=== PATIENT | female | born 1985 | race Caucasian/White ===

== ENCOUNTER 2018-11-19 10:43 | Emergency (ER) | payer SELFPAY ==
--- NOTE | 2018-11-19 11:34 | EDPHYS ---
Physician Documentation [facility] Name: Crystal Sacnhez Age: 33 yrs Sex: Female : 1985 Arrival Date: 11/19/2018 Time: 10:44 Bed 25 Private MD: ED Physician Warren Hartley HPI: 11/19 11:43 This 33 yrs old Female presents to ER via Ambulatory with complaints of Sore snw Throat. 11:43 The patient presents with sore throat. The patient describes throat pain as constant, snw raw, scratchy. Onset: The symptoms/episode began/occurred suddenly, 2 day(s) ago, and became worse and became persistent. Severity of symptoms: At their worst the symptoms were moderate, severe. Associated signs and symptoms: The patient has no apparent associated signs or symptoms. The patient has not experienced similar symptoms in the past. It is unknown whether or not the patient has recently seen a physician. 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 - Social history:: Smoking status: Patient uses tobacco products, smokes one pack cigarettes per day. - Ebola Screening: : No symptoms or risks identified at this time. ROS: 11:42 Constitutional: Negative for fever, chills, and weight loss, Eyes: Negative for injury, snw pain, redness, and discharge, Neck: Negative for injury, pain, and swelling, Cardiovascular: Negative for chest pain, palpitations, and edema, Respiratory: Negative for shortness of breath, cough, wheezing, and pleuritic chest pain, Abdomen/GI: Negative for abdominal pain, nausea, vomiting, diarrhea, and constipation, Back: Negative for injury and pain, : Negative for injury, bleeding, discharge, and swelling, MS/Extremity: Negative for injury and deformity, Skin: Negative for injury, rash, and discoloration, Neuro: Negative for headache, weakness, numbness, tingling, and seizure. 11:42 ENT: Positive for sore throat. Exam: 11:41 Constitutional: This is a well developed, well nourished patient who is awake, alert, snw and in no acute distress. Head/Face: Normocephalic, atraumatic. Eyes: Pupils equal round and reactive to light, extra-ocular motions intact. Lids and lashes normal. Conjunctiva and sclera are non-icteric and not injected. Cornea within normal limits. Periorbital areas with no swelling, redness, or edema. Neck: Trachea midline, no thyromegaly or masses palpated, and no cervical lymphadenopathy. Supple, full range of motion without nuchal rigidity, or vertebral point tenderness. No Meningismus. Chest/axilla: Normal chest wall appearance and motion. Nontender with no deformity. No lesions are appreciated. Cardiovascular: Regular rate and rhythm with a normal S1 and S2. No gallops, murmurs, or rubs. Normal PMI, no JVD. No pulse deficits. Respiratory: Lungs have equal breath sounds bilaterally, clear to auscultation and percussion. No rales, rhonchi or wheezes noted. No increased work of breathing, no retractions or nasal flaring. Abdomen/GI: Soft, non-tender, with normal bowel sounds. No distension or tympany. No guarding or rebound. No evidence of tenderness throughout. Back: No spinal tenderness. No costovertebral tenderness. Full range of motion. Skin: Warm, dry with normal turgor. Normal color with no rashes, no lesions, and no evidence of cellulitis. MS/ Extremity: Pulses equal, no cyanosis. Neurovascular intact. Full, normal range of motion. Neuro: Awake and alert, GCS 15, oriented to person, place, time, and situation. Cranial nerves II-XII grossly intact. Motor strength 5/5 in all extremities. Sensory grossly intact. Cerebellar exam normal. Normal gait. 11:41 ENT: External ear(s): are unremarkable, Ear canal(s): are normal, TM's: are normal, Nose: is normal, Mouth: is normal, Posterior pharynx: swelling, that is moderate, that is marked, erythema, that is marked, exudate, is not appreciated, Voice: is normal. Vital Signs: 10:59 BP 132 / 90; Pulse 92; Resp 16; Temp 98.4; Pulse Ox 98% on R/A; Weight 58.97 kg; Height la1 5 ft. 9 in. (175.26 cm); 10:59 Body Mass Index 19.20 (58.97 kg, 175.26 cm) la1 MDM: 11:24 Patient medically screened. snw 11:42 Data reviewed: vital signs, nurses notes. Data interpreted: Pulse oximetry: on room air snw is 98 %. Interpretation: normal. Counseling: I had a detailed discussion with the patient and/or guardian regarding: the historical points, exam findings, and any diagnostic results supporting the discharge/admit diagnosis, lab results, the need for outpatient follow up, to return to the emergency department if symptoms worsen or persist or if there are any questions or concerns that arise at home. Special discussion: Based on the history and exam findings, there is no indication for further emergent testing or inpatient evaluation. I discussed with the patient/guardian the need to see the primary care provider for further evaluation of the symptoms. 11/19 10:58 Order name: Strep; Complete Time: 11:43 la1 Administered Medications: 11:48 Drug: Decadron - Dexamethasone 10 mg {Note: given PO as ordered .} Route: IVP; Site: iw Other; 11:48 Drug: Rocephin (cefTRIAXone) 1 grams Route: IM; Site: right ventrogluteal; iw 11:49 Drug: Lortab Liquid 15 ml Route: PO; iw Disposition: 12:09 Co-signature as Attending Physician, Warren Hartley MD. rn Disposition: 11/19/18 11:33 Discharged to Home. Impression: Acute pharyngitis. - Condition is Stable. - Discharge Instructions: Fever, Adult, Pharyngitis, Rehydration, Adult. - Prescriptions for Prednisone 20 mg Oral Tablet - take 2 tablet by ORAL route once daily for 5 days; 10 tablet. Zithromax 500 mg Oral Tablet - take 1 tablet by ORAL route once daily for 5 days; 5 tablet. - Medication Reconciliation Form, Thank You Letter, Antibiotic Education, Prescription Opioid Use, School release form form. - Follow up: Private Physician; When: 2 - 3 days; Reason: Recheck today's complaints, Continuance of care, Re-evaluation by your physician. Follow up: Emergency Department; When: As needed; Reason: Worsening of condition. Signatures: Dispatcher Med[employer] EDZora Dumas, FARIDA CASH PERSON-Csnw Kathe Wilson RN RN iw Nieto, Roman, MD MD rn Martinez, Eric em1 Matthew Moffett RN RN la1 Corrections: (The following items were deleted from the chart) 12:07 11:33 11/19/2018 11:33 Discharged to Home. Impression: Acute pharyngitis. Condition is em1 Stable. Forms are Medication Reconciliation Form, Thank You Letter, Antibiotic Education, Prescription Opioid Use. Follow up: Private Physician; When: 2 - 3 days; Reason: Recheck today's complaints, Continuance of care, Re-evaluation by your physician. Follow up: Emergency Department; When: As needed; Reason: Worsening of condition. snw
--- NOTE | 2018-11-19 11:34 | ER ---
Nurse's Notes [facility] Name: Crystal Sanchez Age: 33 yrs Sex: Female : 1985 Arrival Date: 11/19/2018 Time: 10:44 Bed 25 Private MD: Diagnosis: Acute pharyngitis Presentation: 11/19 10:58 Presenting complaint: Patient states: sore throat for 2 days, multiple ill contacts. la1 10:59 Transition of care: patient was not received from another setting of care. Onset of la1 symptoms was November 19, 2018. Risk Assessment: Do you want to hurt yourself or someone else? Patient reports no desire to harm self or others. Initial Sepsis Screen: Does the patient meet any 2 criteria? No. Patient's initial sepsis screen is negative. Does the patient have a suspected source of infection? No. Patient's initial sepsis screen is negative. Care prior to arrival: None. 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 - Social history:: Smoking status: Patient uses tobacco products, smokes one pack cigarettes per day. - Ebola Screening: : No symptoms or risks identified at this time. Vital Signs: 10:59 BP 132 / 90; Pulse 92; Resp 16; Temp 98.4; Pulse Ox 98% on R/A; Weight 58.97 kg; Height la1 5 ft. 9 in. (175.26 cm); 10:59 Body Mass Index 19.20 (58.97 kg, 175.26 cm) la1 ED Course: 10:44 Patient arrived in ED. as 10:51 Zora Monroy FNP-C [facility]. snw 10:51 Warren Hartley MD is Attending Physician. snw 10:59 Triage completed. la1 10:59 Arm band placed on left wrist. la1 11:21 Kathe Wilson RN is Primary Nurse. iw Administered Medications: 11:48 Drug: Decadron - Dexamethasone 10 mg {Note: given PO as ordered .} Route: IVP; Site: iw Other; 11:48 Drug: Rocephin (cefTRIAXone) 1 grams Route: IM; Site: right ventrogluteal; 11:49 Drug: Lortab Liquid 15 ml Route: PO; Outcome: 11:33 Discharge ordered by MD. alva 12:07 Patient left the ED. em1 Signatures: Zora Monroy, SCOTTY-C REVIEW APPRAISER-Hermelinda Bryson Irene, RN RN Calvin Alaniz em1 Matthew Moffett RN RN ut1
[2018-11-19] MEDS ORDERED: LIDOCAINE 1% MPF 5 ML VIAL ONE (11:55)
[2018-11-19] MEDS ORDERED: dexAMETHasone 10 MG/ML VIAL ONE (11:55)
[2018-11-19] MEDS ORDERED: HYDROCOD 2.5mg-ACETAMIN 108mg/5mL Soln ONE (11:56)
[2018-11-19] MEDS ORDERED: CEFTRIAXONE 1000 MG/VIAL ONE (11:56)
== END 2018-11-19 12:07 | disposition home or self-care (01) ==
LOC: ER 10:43
DX: J02.9 Acute pharyngitis, unspecified (principal); F17.210 Nicotine dependence, cigarettes, uncomplicated
CPT/HCPCS: 87081; 96372; 96374; 99282; J1100